=== PATIENT | male | born 1995 | race Caucasian/White ===

== ENCOUNTER → 2020-06-23 10:28 | Outpatient (CLI) | payer OTHER, SELFPAY ==
[2020-06-23] MEDS: COVID-19 VACC #1, MRNA(MOD) 100 MCG/0.5 ML VIAL IM (10:40)
== END ==
PROVIDERS: Visit Provider Internal Medicine
DX: Z23 Encounter for immunization (principal)
CPT/HCPCS: 0011A; 91301

== ENCOUNTER → 2020-07-29 07:42 | Outpatient (CLI) | payer OTHER, SELFPAY ==
[2020-07-29] MEDS: COVID-19 VACC #2, MRNA(MOD) 100 MCG/0.5 ML VIAL IM (07:56)
== END ==
PROVIDERS: Visit Provider Internal Medicine
DX: Z23 Encounter for immunization (principal)
CPT/HCPCS: 0012A; 91301

== ENCOUNTER 2021-05-21 07:20 | Emergency (ER) | payer OTHER, SELFPAY ==
[2021-05-21 07:35] VITALS: BP 133/82; PULSE 102; RESP 18; TEMP 36.6; O2SAT 94; BMI 35.5
--- NOTE | 2021-05-21 07:39 | ED.GENADULT ---
HPI - General Adult General Chief complaint: Upper Respiratory Symptoms Stated complaint: sore throat x3 days Time Seen by Provider: 05/21/21 07:38 Source: patient Mode of arrival: Ambulatory Limitations: no limitations History of Present Illness HPI narrative: This is a 25-year-old male who comes to the emergency department with complaint of sore throat x3 days with generally feeling unwell, fatigue and muscle aches particularly of the neck and upper shoulders. Patient has had sore throat and pain of his tongue. He noted yesterday that his tongue appeared white. He states it is painful to swallow. Patient does not feel like his tonsils are particularly enlarged. Patient states pain is on both sides of his throat. He has been afebrile. He describes mild headache. His a has not had any chest pain or shortness of breath. He has had some the postnasal drainage but denies any nasal congestion. No nausea, no vomiting, no diarrhea constipation. No dysuria, urgency or frequency. Patient has not appreciated rash or skin changes elsewhere. He has not had any known sick contacts. He works on [employer]. Patient denies any medical issues. No daily medications. No prior surgeries. He is allergic to sulfa. Denies tobacco, alcohol or illicit. [facility]. patient has not had similar symptoms in the past. Related Data Previous Rx's Medication Instructions Recorded triamcinolone acetonide 0.5 % 1 favian TOPICAL BID #60 gm 02/01/16 topical cream nystatin 100,000 unit/mL oral 1 ml BUCCAL QID 10 Days #40 ml 05/21/21 suspension Allergies Allergy/AdvReac Type Severity Reaction Status Date / Time SULFA (sulfonamide) Allergy Severe SWELLING,HI Uncoded 05/29/17 13:10 VES Review of Systems Review of Systems ROS Unobtainable: All systems reviewed & are unremarkable except as noted in HPI and below Patient History Social History Smoking Status: Never smoker Smoking Status: Never smoker Substance Use Type: does not use Exam Narrative Exam Narrative: GEN: well nourished, well appearing male, alert and oriented x 3, patient appears to be in mild distress. HEENT: Atraumatic, pupils are equal round reactive to light, extraocular movements are intact, conjunctivae are slightly injected, nares are clear, TMs are clear with no fluid, there is no conjunctival pallor. Throat difficult to fully evaluate posteriorly, for tonsils do not appear enlarged, mild posterior pillar erythema, no uvular deviation, patient has leukoplakia patchy on his tongue, no oral lesions or ulcerations noted. Patient has slight hoarseness but no stridor or muffled voice. Patient is able to lay backward comfortably. No difficulties handling secretions. HEART: Regular rate and rhythm without murmur, clicks, rubs. LUNGS:Lungs clear to auscultation, no wheezes, rales, crackles, chest moves symmetrically ABD:bowel sounds normal, soft, non-tender, no guarding, rebound, rigidity, no masses noted, no hepatosplenomegaly :No CVA tenderness MSCL: Non-tender, full range of motion, normal gait NEURO:CN 2-12 intact, sensation normal SKIN: No rash, erythema or other skin changes noted. Initial Vital Signs Initial Vital Signs: Vital Signs Temperature 98 F 05/21/21 07:35 Pulse Rate 102 H 05/21/21 07:35 Respiratory Rate 18 05/21/21 07:35 Blood Pressure 133/82 05/21/21 07:35 Pulse Oximetry 94 05/21/21 07:35 Course Orders Ordered: ED Orders 05/21/21 07:36 Respiratory Panel (Film Array) Stat Throat Culture Stat Reevaluation(s) Reevaluation #1: Reviewed patient's findings today. That he does need to follow-up for evaluation of he has persistent symptoms and if nystatin resolve symptoms as he likely has an immune deficiency if he does not use an inhaler or steroids or anything that should cause him to have thrush. We did review his respiratory panel. Patient also has a throat culture currently pending and patient verified that he has a cell phone number in the system that can be contacted if positive. Time: 09:15 Vital Signs Vital signs: Vital Signs - 8 hr 05/21/21 07:35 Temperature 98 F Pulse Rate 102 H Respiratory Rate 18 Blood Pressure 133/82 Pulse Oximetry 94 Medical Decision Making Lab Data Labs: Lab Results 05/21/21 Range/Units 07:36 Chlamy pneumoniae PCR Not detected (Not Detect) Adenovirus (PCR) Not detected (Not Detect) B. pertussis DNA (PCR) Not detected (Not Detecte) B.parapertussis DNA PCR Not detected (Not Detecte) Coronavirus OC43 (PCR) Not detected (Not Detect) Coronavirus HKU1 (PCR) Not detected (Not Detect) Coronavirus 229E (PCR) Not detected (Not Detect) SARS-CoV-2 (PCR) Not detected (Not Detecte) Coronavirus NL63 (PCR) Not detected (Not Detect) Human Metapneumovir PCR Not detected (Not Detect) Influenza Type A (PCR) Not detected (Not Detect) Influenza Type B (PCR) Not detected (Not Detect) M. pneumoniae (PCR) Not detected (Not Detect) Parainfluenza 1 (PCR) Not detected (Not Detect) Parainfluenza 2 (PCR) Not detected (Not Detect) Parainfluenza 3 (PCR) Not detected (Not Detect) Parainfluenza 4 (PCR) Not detected (Not Detect) RSV (PCR) Not detected (Not Detect) Entero/Rhino (PCR) Not detected (Not Detect) Point of Care Testing Rapid Strep A Negative Point of care testing: Point of Care Testing Rapid Strep A Negative MDM Narrative Medical decision making narrative: This is a 25-year-old male comes in with complaint of sore throat and tongue for the past 3 days. Patient has been afebrile but felt generally unwell. He does have a viral infection but does have some leukoplakia on his tongue possibly thrush but does not have any particular risk factors that he is aware of or sharing. Patient did have respiratory panel which is negative coronavirus. Does not appear to have Coxsackie virus, [id number] or similar. Rapid strep was negative discussed with patient less likely with leukoplakia but throat culture is pending. At this time plan for short course of nystatin to see if this improves his symptoms as he may be having some esophagitis. I did discuss with the patient if throat culture comes back positive will call an appropriate treatment. Patient should follow-up with primary care if he does have thrush or esophagitis is this needs he likely has an immune deficiency and needs further workup. All questions answered. Discussed return precautions. Discharge Plan Departure Patient Disposition: Home Clinical Impression: Pharyngitis, Leukoplakia of tongue Instructions: Sore Throat Activity Restrictions/Additional Instructions: Follow-up with your physician in the next week if your symptoms have not completely resolved. Your throat culture is pending. Use nystatin 4 times daily as directed. You may continue to use Tylenol up to a 1000 mg every 8 hours and/or ibuprofen up to 800 mg every 8 hours. Please return for worsening symptoms, difficulty breathing, stridor or high-pitched wheezing, inability to swallow your saliva or secretions or liquids, severe headaches, new rash or skin changes, persistent vomiting or other new or concerning symptoms. Prescriptions: New nystatin 100,000 unit/mL suspension 1 ml buccal QID 10 Days Qty: 40 0RF Rx Instructions: administer 1/2 of dose in each side of the mouth No Action triamcinolone acetonide 0.5 % cream 1 favian Topical BID Qty: 60 1RF Stand Alone Forms: Work Release Note
[2021-05-21 09:01] LABS: Adenovirus Not Detected (Not Detect); B. parapertussis Not Detected (Not Detecte); Bordetella pertussis Not Detected (Not Detecte); Chlamydophila pneumoniae Not Detected (Not Detect); Coronavirus 229E Not Detected (Not Detect); Coronavirus HKU1 Not Detected (Not Detect); Coronavirus NL 63 Not Detected (Not Detect); Coronavirus OC43 Not Detected (Not Detect); Human Metapneumovirus Not Detected (Not Detect); Human Rhinovirus/Enterovirus Not Detected (Not Detect); Influenza A Not Detected (Not Detect); Influenza B Not Detected (Not Detect); Mycoplasma pneumoniae Not Detected (Not Detect); Parainfluenza Virus 1 Not Detected (Not Detect); Parainfluenza Virus 2 Not Detected (Not Detect); Parainfluenza Virus 3 Not Detected (Not Detect); Parainfluenza Virus 4 Not Detected (Not Detect); Respiratory Syncytial Virus Not Detected (Not Detect); SARS- CoV-2 Not Detected (Not Detecte)
[2021-05-21 09:53] VITALS: BP 133/82; PULSE 75; RESP 18; O2SAT 97
== END 2021-05-21 09:53 | disposition home or self-care (01) ==
PROVIDERS: Emergency Provider Emergency Medicine
DX: J02.9 Acute pharyngitis, unspecified (principal); K13.21 Leukoplakia of oral mucosa, including tongue
CPT/HCPCS: 87070; 87633; 87880; 99281; 99282

== ENCOUNTER 2022-03-22 14:37 | Emergency (ER) | payer OTHER, SELFPAY ==
[2022-03-22 14:44] VITALS: BP 136/76; PULSE 74; RESP 16; TEMP 36.8; O2SAT 99; BMI 37.6
--- NOTE | 2022-03-22 15:03 | DI.RAD.S_ITS ---
PROCEDURE: XR LUMBAR SPINE 2-3V INDICATIONS: back pain TECHNIQUE: 3 views of the lumbar spine were acquired. COMPARISON: None. FINDINGS: Bones: 5 [id number] vertebrae are present. There is normal bony alignment. No vertebral body compression fractures. No suspicious bony lesions. Mild multilevel disc space narrowing and endplate osteophyte formation. Facet hypertrophy throughout the mid and lower lumbar spine. Soft tissues: Overlying bowel gas pattern is normal. No suspicious soft tissue calcifications. IMPRESSION: Multilevel degenerative disc and facet disease. No acute fracture. No osseous lesion. If symptoms and/or clinical suspicion for pathology persist, further assessment with repeat, or advanced imaging (e.g., CT, MRI, or bone scan) may be helpful for further assessment. Dictated by: Byron Stephen M.D. on 03/22/2022 at 15:21 Approved by: Byron Stephen M.D. on 03/22/2022 at 15:22
--- NOTE | 2022-03-22 15:06 | ED.BACK ---
HPI - Back Pain/Injury <ALCIDES Yao - Last Filed: 03/22/22 15:53> General Chief Complaint: Back Pain/Injury Stated Complaint: Threw back out Time Seen by Provider: 03/22/22 14:57 Source: patient History of Present Illness HPI Narrative: This is a 26-year-old male presents to the emergency department complaining of low back pain with slight radiation to the left hip which happened acutely while he was reracking weight doing back squats at the gym. He denies any pain down either of his legs, he denies groin paresthesia, denies any sensation deficit, complains of generalized pain in this area, denies weakness, denies any urinary changes. Denies any muscle spasms, this complains of pain and soreness in the area. Denies history of low back pain past, denies any deficits at baseline. Related Data Previous Rx's Medication Instructions Recorded triamcinolone acetonide 0.5 % 1 favian topical BID ##60 02/01/16 topical cream lidocaine 5 % topical patch 1 patch topical DAILY #15 ea 03/22/22 (Lidoderm) methocarbamol 750 mg tablet 750 mg PO Q8H PRN muscle spasm #14 03/22/22 tabs Allergies Allergy/AdvReac Type Severity Reaction Status Date / Time Sulfa (Sulfonamide Allergy Severe SWELLING, Verified 03/22/22 15:10 Antibiotics) HIVES Review of Systems <ALCIDES Yao - Last Filed: 03/22/22 15:53> Review of Systems ROS Unobtainable: All systems reviewed & are unremarkable except as noted in HPI and below Patient History <ALCIDES Yao - Last Filed: 03/22/22 15:53> Social History Smoking Status: Never smoker Smoking Status: Never smoker Substance Use Type: does not use Exam <ALCIDES Yao - Last Filed: 03/22/22 15:53> Narrative Exam Narrative: Reviewed vitals signs and nursing notes. General: cooperative, comfortable, in no acute distress, well groomed HEENT: symmetrical facial expressions, moist mucous membranes GI: abdomen soft, nontender to palpation, nondistended, without masses, rebound tenderness or exquisite tenderness with exam. No CVA tenderness MSK: moves all extremities, neurovascularly intact, no weakness, normal tone, no tenderness over lumbar/sacral spinal processes, generalized tenderness to the left paraspinal musculature of the lumbar spine my muscle tension palpable, left leg lift exacerbates symptoms of low back pain Skin: brisk capillary refill, without pallor or erythema Neuro: normal speech and cognition, A&O x3, ambulatory, clear speech, without sensation or motor deficit Psych: mental status is grossly normal, congruent mood, normal affect, pleasant and cooperative Initial Vital Signs Initial Vital Signs: Vital Signs Temperature 98.2 F 03/22/22 14:44 Pulse Rate 74 03/22/22 14:44 Respiratory Rate 16 03/22/22 14:44 Blood Pressure 136/76 03/22/22 14:44 Pulse Oximetry 99 03/22/22 14:44 Oxygen Delivery Method 03/22/22 14:44 <Swati Trevino DO - Last Filed: 03/30/22 07:43> Initial Vital Signs Initial Vital Signs: Vital Signs Temperature 98.2 F 03/22/22 14:44 Pulse Rate 74 03/22/22 14:44 Respiratory Rate 16 03/22/22 14:44 Blood Pressure 136/76 03/22/22 14:44 Pulse Oximetry 99 03/22/22 14:44 Oxygen Delivery Method 03/22/22 14:44 Course <ALCIDES Yao - Last Filed: 03/22/22 15:53> Orders Ordered: Discontinued Medications Hydrocodone Bitart/Acetaminophen (Hydrocodone/Acet 5/325 Tablet) 1 tab PO NOW ONE Stop: 03/22/22 15:04 Last Admin: 03/22/22 16:02 Dose: Not Given Documented By: AT Ketorolac Tromethamine (Ketorolac 30 Mg/Ml Vial) 30 mg IM NOW ONE Stop: 03/22/22 15:04 Last Admin: 03/22/22 15:25 Dose: 30 mg Documented By: AT Lidocaine (Lidocaine Patch 1 Each Adh..Patch) 1 each TOP NOW ONE Stop: 03/22/22 15:04 Last Admin: 03/22/22 15:25 Dose: 1 each Documented By: AT Methocarbamol (Methocarbamol 500 Mg Tablet) 750 mg PO NOW ONE Stop: 03/22/22 15:04 Last Admin: 03/22/22 16:02 Dose: Not Given Documented By: AT Prednisone (Prednisone 20 Mg Tablet) 20 mg PO NOW ONE Stop: 03/22/22 15:04 Last Admin: 03/22/22 15:25 Dose: 20 mg Documented By: AT Vital Signs Vital signs: Vital Signs - 8 hr 03/22/22 14:44 Temperature 98.2 F Pulse Rate 74 Respiratory Rate 16 Blood Pressure 136/76 Pulse Oximetry 99 Oxygen Delivery Method Room Air <Swati Trevino DO - Last Filed: 03/30/22 07:43> Orders Ordered: Discontinued Medications Hydrocodone Bitart/Acetaminophen (Hydrocodone/Acet 5/325 Tablet) 1 tab PO NOW ONE Stop: 03/22/22 15:04 Last Admin: 03/22/22 16:02 Dose: Not Given Documented By: AT Ketorolac Tromethamine (Ketorolac 30 Mg/Ml Vial) 30 mg IM NOW ONE Stop: 03/22/22 15:04 Last Admin: 03/22/22 15:25 Dose: 30 mg Documented By: AT Lidocaine (Lidocaine Patch 1 Each Adh..Patch) 1 each TOP NOW ONE Stop: 03/22/22 15:04 Last Admin: 03/22/22 15:25 Dose: 1 each Documented By: AT Methocarbamol (Methocarbamol 500 Mg Tablet) 750 mg PO NOW ONE Stop: 03/22/22 15:04 Last Admin: 03/22/22 16:02 Dose: Not Given Documented By: AT Prednisone (Prednisone 20 Mg Tablet) 20 mg PO NOW ONE Stop: 03/22/22 15:04 Last Admin: 03/22/22 15:25 Dose: 20 mg Documented By: AT Vital Signs Vital signs: Vital Signs - 8 hr 03/22/22 14:44 Temperature 98.2 F Pulse Rate 74 Respiratory Rate 16 Blood Pressure 136/76 Pulse Oximetry 99 Oxygen Delivery Method Room Air MDM - Back Pain/Injury <ALCIDES Yao - Last Filed: 03/22/22 15:53> Imaging Data lumbar xr: Radiologist's Impression: PROCEDURE:? XR LUMBAR SPINE 2-3V ? INDICATIONS:? back pain ? TECHNIQUE:? 3 views of the lumbar spine were acquired.? ? COMPARISON:? None. ? FINDINGS:? ? Bones:? 5 [id number] vertebrae are present.? There is normal bony alignment.? No vertebral body compression fractures.? No suspicious bony lesions.? Mild multilevel disc space narrowing and endplate osteophyte formation.? Facet hypertrophy throughout the mid and lower lumbar spine. ? Soft tissues:? Overlying bowel gas pattern is normal.? No suspicious soft tissue calcifications.? ? ? IMPRESSION:? Multilevel degenerative disc and facet disease. No acute fracture. No osseous lesion. If symptoms and/or clinical suspicion for pathology persist, further assessment with repeat, or advanced imaging (e.g., CT, MRI, or bone scan) may be helpful for further assessment. ? ? Dictated by: Byron Stephen M.D. on 03/22/2022 at 15:21 ? ? Approved by: Byron Stephen M.D. on 03/22/2022 at 15:22 ? MDM Narrative Medical decision making narrative: Differential diagnosis considered include: acute fracture, renal colic, pyelonephritis, degenerative joint and or disc disease, cauda equina, AAA, viscus perforation, ligamental injury or epidural abscess, disc injury/herniation w/radiculopathy, degenerative arthritis, spinal stenosis, trauma, paraspinal or other muscular strain, and vital cord compression. Suspect likely musculoskeletal etiology strain/sprain,/acute exacerbation of chronic low back pain. Patient's left straight leg raise test was positive. No back pain red flags on history or physical. No history of IV substance use, or bony tenderness to palpation, no trauma, no bony tenderness to palpation , afebrile, no CVAT, no urinary symptoms. No bowel or urinary incontinence or retention, no saddle anesthesia, no new/worsening distal weakness, decreased reflexes or foot drop. Pt is nontoxic appearing. Patient has soft tissue tenderness to palpation. Pt is neurovascularly intact distally, afebrile, without immunosuppression or evidence of infection, peritoneal signs, hypertensive crisis, incontinence, or menengial signs. Encouraged patient to follow-up with his primary care provider as needed or 2 follow-up at [facility] if his symptoms are ongoing. Lumbar x-ray today does not show acute fracture or acute abnormality. X-ray of lumbar spine shows degenerative disc disease and facet disease, no acute fracture, no osseous lesion. Patient does not have any red flag symptoms, he was treated with medications listed above, will follow-up with [facility] as needed and or physical therapy for follow-up. Lumbar strain, radiculopathy with exacerbation/injury Will treat with muscle relaxer, anti-inflammatories, prednisone x5 days, topical lidocaine patches and follow-up for worsening symptoms Discharge Plan Departure Patient Disposition: Home Clinical Impression: Acute back pain with radiculopathy, DDD (degenerative disc disease), lumbar Strain of lumbar region Qualifiers: Encounter type: initial encounter Qualified Code(s): S39.012A - Strain of muscle, fascia and tendon of lower back, initial encounter Instructions: DI for Back Pain With Sciatica, DI for Back Strain or Sprain Activity Restrictions/Additional Instructions: *You have been diagnosed with a strain or sprain of the nearby muscles in your low back, because you have some wear and tear of your back, this can cause increased inflammation and pain over the nerve roots and your symptoms today. Physical therapy would be helpful for you, establish primary care with 1 of the primary care providers in your system or here and ask for a referral to physical therapy. Please use ibuprofen 800 mg with Tylenol 975 mg every 8 hours for pain, use muscle relaxers for spasms, something topical to assist with the pain, use ice and heat, gentle range of motion and avoid heavy exertion for the next week. Please have food and water with your medications, take a stool softener like MiraLax with water to prevent strain with bowel movements. CONTROLLED SUBSTANCE DISCHARGE (Narcotic/benzodiazepine/Flexeril/Phenergan) 1. You have been prescribed narcotic medications, it does have acetaminophen/Tylenol/paracetamol in it, DO NOT TAKE MORE THAN 4,00mg in 24 hours of Tylenol. *Tramadol does not contain tylenol. 2. Please understand that we cannot provide further refills of narcotics, benzodiazepines or controlled substances through the ED and her pain management will need to be through your provider. 3. While on these medications you cannot drive or operate heavy machinery. 4. You cannot sign legal documents or perform any duties such as this. 5. As long as you are taking opiate pain medications he should also be taking a stool softener such as Colace, Dulcolax, MiraLAX or prune juice, to help avoid constipation. *What to do: *Please continue to take your regular medications as directed. [x ] New medication prescriptions sent to your pharmacy: [ [facility]] [ ] New medication written as a paper prescription [ ] No new medications given *Please follow up with your primary care provider in 2-3 days, call for an appointment. Let them know you were seen in the Emergency Department and that we asked that you be seen for follow-up. We will electronically transmit a record of today's note if your PCP is in our system *If you do not have a primary care provider please contact [phone] to establish care with one of the [facility] primary care providers. *Return to Emergency Department if you should have any new, worsening, or concerning symptoms, such as [fever greater than 101F, chills, worsening pain, persistent vomiting or other bothersome symptoms]. Prescriptions: New methocarbamol 750 mg tablet 750 mg PO Q8H PRN (Reason: muscle spasm) Qty: 14 0RF lidocaine [Lidoderm] 5 % adhesive patch,medicated 1 patch topical DAILY Qty: 15 0RF Rx Instructions: leave on most painful area for up to 12 hrs No Action triamcinolone acetonide 0.5 % cream 1 favian Topical BID Qty: 60 1RF Referrals: [facility] [Provider Group] Stand Alone Forms: Patient Portal/API <Swati Trevino, - Last Filed: 03/30/22 07:43> Cosign ED Attending Perlaature Attestation: I was immediately available in the department for consultation. Documentation has been reviewed.
[2022-03-22] MEDS: KETOROLAC 30 MG/ML VIAL IM (15:25)
[2022-03-22] MEDS: predniSONE 20 MG TABLET PO (15:25)
[2022-03-22] MEDS: LIDOCAINE PATCH 1 EACH ADH..PATCH TOP (15:25)
[2022-03-22 15:59] VITALS: BP 126/60; PULSE 65; RESP 18; O2SAT 99
== END 2022-03-22 16:02 | disposition home or self-care (01) ==
PROVIDERS: Emergency Provider Nurse Practitioner Critical Care Medicine
DX: S39.012A Strain of muscle, fascia and tendon of lower back, initial encounter (principal); M54.16 Radiculopathy, lumbar region; M51.36 Other intervertebral disc degeneration, lumbar region
CPT/HCPCS: 72100; 96372; 99283; 99284; J1885